=== PATIENT | female | born 1985 | race Caucasian/White ===

== ENCOUNTER 2023-07-24 06:22 | Emergency (ER) | payer BC, SELFPAY ==
[2023-07-24 06:30] VITALS: BP 115/68
[2023-07-24] MEDS: DECADRON 10 MG PO (08:15)
[2023-07-24] MEDS: TORADOL 30 MG IM (08:17)
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
[2023-07-24 09:10] VITALS: BP 117/56
== END 2023-07-24 09:15 | disposition home or self-care (01) ==
LOC: EMR 06:22
PROVIDERS: EMERGENCY PHYSICIAN Emergency Medicine; FAMILY PHYSICIAN Family Medicine
DX: M70.72 Other bursitis of hip, left hip (principal); M54.12 Radiculopathy, cervical region; G89.29 Other chronic pain
CPT/HCPCS: 99284; 96372

== ENCOUNTER → 2024-02-15 11:40 | Outpatient (REF) | payer BC, SELFPAY | LOC: RAD 11:40 | PROVIDERS: ATTENDING PHYSICIAN Emergency Medicine; FAMILY PHYSICIAN Family Medicine | DX: S99.921A Unspecified injury of right foot, initial encounter (principal) | CPT/HCPCS: 73630 ==

== ENCOUNTER → 2024-03-29 10:19 | Outpatient (REF) | payer BC, SELFPAY | LOC: EMG 10:19 | PROVIDERS: ATTENDING PHYSICIAN Student in an Organized Health Care Education/Training Program; FAMILY PHYSICIAN Family Medicine | DX: R20.0 Anesthesia of skin (principal) | CPT/HCPCS: 95886; 95910 ==

== ENCOUNTER → 2024-06-02 09:16 | Outpatient (REF) | payer BC, SELFPAY | LOC: RAD 09:16 | PROVIDERS: ATTENDING PHYSICIAN Family Medicine | DX: R06.09 Other forms of dyspnea (principal) | CPT/HCPCS: 71046 ==

== ENCOUNTER → 2024-12-27 11:41 | Outpatient (REF) | payer BC, SELFPAY | LOC: DHSLP 11:41 | PROVIDERS: ATTENDING PHYSICIAN Internal Medicine; FAMILY PHYSICIAN Family Medicine | DX: G47.30 Sleep apnea, unspecified (principal); R40.0 Somnolence | CPT/HCPCS: 95805 ==

== ENCOUNTER 2025-01-04 11:12 | Emergency (ER) | payer BC, SELFPAY ==
[2025-01-04 11:14] VITALS: BP 105/76
[2025-01-04 11:38] LABS: Hematocrit 43.9 % (37.0-47.0); Hemoglobin 15.3 g/dL (12.0-16.0); Mean Corp Hgb Conc. 34.9 g/dL (33.0-37.0); Mean Corpuscular Volume 91.5 fL (81.0-99.0); Nucleated Red Blood Cells % 0 %; Platelet Count 241 10^3/uL (130-400); Red Cell Dist. Width 12.1 % (11.5-14.5)
[2025-01-04 11:40] VITALS: BP 102/76
[2025-01-04 11:56] LABS: ALT (SGPT) 24 U/L (0-35); AST (SGOT) 27 U/L (14-36); Albumin 4.5 g/dl (3.5-5.0); Alkaline Phosphatase 72 U/L (38-126); Blood Urea Nitrogen 7 mg/dl (7-17); Calcium 9.8 mg/dl (8.4-10.2); Carbon Dioxide 27 mmol/L (22-30); Chloride 107 mmol/L (98-107); Glucose 103 mg/dl (70-99); HCG, Serum Qualitative Screen Negative; Potassium 4.3 mmol/L (3.5-5.1); Sodium 139 mmol/L (135-145); Total Protein 7.2 g/dl (6.3-8.2); eGFR > 60.00
[2025-01-04 12:00] VITALS: BP 110/71; BP 129/84
[2025-01-04 12:03] LABS: Troponin I < 0.012 ng/ml
--- NOTE | 2025-01-04 13:23 | ED.GENMED ---
History of Present Illness
<SUE Strickland - Last Filed: 01/04/25 14:17>
General
Chief Complaint: Musculo-Skeletal Complaint
Source: patient
Exam Limitations: none
Time Seen by Provider: 01/04/25 11:49
Nursing documentation reviewed up to this point in time: agreed with
History of Present Illness
History of Present Illness:
39-year-old female presents to the ER for evaluation. Patient has chronic fibromyalgia history of chronic fatigue syndrome,' floating rib surgery followed at [facility] by Dr. Mauricio presents to the ER for evaluation. She had surgery for
this. November 2023 and ever since that chronic pain in the sternum and rib area. She reports that over the past 1 week pain has been exacerbated not relieved with Tylenol. She also has some burning pain in the epigastric region. She does have
history of ulcer years ago after taking NSAIDs however has not taken NSAIDs since the ulcer was diagnosed. She has since healed from the ulcer. She just saw her surgeon in October and had a CAT scan there unsure what is causing her chronic pain. She
does report her surgeon discussed possible Xiphodynia as possible cause.
Past History
<SUE Strickland - Last Filed: 01/04/25 14:17>
Past History
ED Past Medical History: Hypothyroidism (She noticed's) and Other (Chronic low back pain with bilateral sciatica. Had an MRI in May 2023 which showed a small disc herniation but not much else.)
ED Past Surgical History: Orthopedic
Social History
Tobacco: Non-smoker
Alcohol: Occasional
Personal:
Living: with family
Employment: Employed
Phy Exam
<SUE Strickland - Last Filed: 01/04/25 14:17>
General Physical Exam
General Presentation: no apparent distress
General age: appears stated age
General Skin: warm and dry
General Habitus: normal
General Mental: alert
General Hydration: appears well hydrated
Cardiovascular Exam
Cardiovascular Exam: regular rate/rhythm, no murmur and normal peripheral pulses
Pulmonary Exam
Pulmonary Exam: lungs clear, no respiratory distress and other (Very tender to light touch over the sternal and left lateral rib area no acute respiratory distress lungs are clear)
Gastrointestinal Exam
Gastrointestinal Exam: normal bowel sounds, non tender and soft
Neurological Exam
Neurological Exam: alert and oriented x3
Musculoskeletal Exam
Musculoskeletal Exam: full ROM
Skin Exam
Skin Exam: normal color and warm/dry
Psychiatric Exam
Psychiatric Exam: normal mood/affect
Course
<SUE Strickland - Last Filed: 01/04/25 14:17>
Orders/Labs/Results
Orders:
Orders
01/04/25 11:19
ECG [Electrocardiogram (*1)] Urgent
Reason for Study: Chest Pain
EKG- Treatment ONCE
01/04/25 11:20
Test Result ONCE
01/04/25 11:28
Complete Blood Count/With Diff Urgent
Comprehensive Metabolic Panel Urgent
HCG, Serum Qualitative Screen Urgent
Troponin I Urgent
01/04/25 13:21
Chest [CR Chest - 2 Views ] Urgent
Comment:
Reason For Exam: pain
01/04/25 13:22
Famotidine [Pepcid] 40 mg PO NOW STA
Ketorolac [Toradol] 30 mg IM NOW STA
Abnormal Lab Results
01/04/25
11:28
WBC 12.4 H 10^3/uL
(4.8-10.8)
MCH 31.9 H pg
(27.0-31.0)
Absolute Neuts (auto) 9.5 H 10^3/uL
(1.4-6.5)
Neutrophils % 77.2 H %
(42.2-75.2)
Lymphocytes % 14.3 L %
(20.5-51.1)
Glucose 103 H mg/dl
(70-99)
01/04/25 11:28
01/04/25 11:51
Vital Signs
Initial and Last Documented VS:
Initial Vital Signs
Temp Pulse Resp BP Pulse Ox
98.5 F 82 16 105/76 97
01/04/25 11:14 01/04/25 11:14 01/04/25 11:14 01/04/25 11:14 01/04/25 11:14
Last Documented Vital Signs
Temp Pulse Resp BP Pulse Ox
98.5 F 74 17 129/84 98
01/04/25 11:14 01/04/25 12:00 01/04/25 12:00 01/04/25 12:00 01/04/25 13:29
<Basil Cruz, DO - Last Filed: 01/04/25 13:56>
Orders/Labs/Results
Orders:
Orders
01/04/25 11:19
ECG [Electrocardiogram (*1)] Urgent
Reason for Study: Chest Pain
EKG- Treatment ONCE
01/04/25 11:20
Test Result ONCE
01/04/25 11:28
Complete Blood Count/With Diff Urgent
Comprehensive Metabolic Panel Urgent
HCG, Serum Qualitative Screen Urgent
Troponin I Urgent
01/04/25 13:21
Chest [CR Chest - 2 Views ] Urgent
Comment:
Reason For Exam: pain
01/04/25 13:22
Famotidine [Pepcid] 40 mg PO NOW STA
Ketorolac [Toradol] 30 mg IM NOW STA
Abnormal Lab Results
01/04/25
11:28
WBC 12.4 H 10^3/uL
(4.8-10.8)
MCH 31.9 H pg
(27.0-31.0)
Absolute Neuts (auto) 9.5 H 10^3/uL
(1.4-6.5)
Neutrophils % 77.2 H %
(42.2-75.2)
Lymphocytes % 14.3 L %
(20.5-51.1)
Glucose 103 H mg/dl
(70-99)
01/04/25 11:28
01/04/25 11:51
Vital Signs
Initial and Last Documented VS:
Initial Vital Signs
Temp Pulse Resp BP Pulse Ox
98.5 F 82 16 105/76 97
01/04/25 11:14 01/04/25 11:14 01/04/25 11:14 01/04/25 11:14 01/04/25 11:14
Last Documented Vital Signs
Temp Pulse Resp BP Pulse Ox
98.5 F 74 17 129/84 98
01/04/25 11:14 01/04/25 12:00 01/04/25 12:00 01/04/25 12:00 01/04/25 13:29
<SUE Strickland - Last Filed: 01/04/25 14:17>
MDM/Problems Addressed
Differential Diagnosis Includes:
Not limited to chronic pain, reflux, musculoskeletal pain
MDM/Problems Addressed:
Patient has chronic pain in the sternal, rib area ever since her surgery in 2023 as documented she is followed by cardiothoracic surgery at [facility] for persistent pain. In addition she has a history of fibromyalgia chronic pain syndrome and is
prescribed low-dose naltrexone by rheumatology. She has chronic pain ever since 2023 however the past week this has exacerbated with no trauma. She is taken Tylenol without relief. Her lungs are clear she is not hypoxic she is not tachypneic.
She does feel her CT surgeon in October at [facility] and had a full CAT scan. Patient no acute distress here stable vital signs. She also complains of burning in the epigastric area will discharge Protonix for the next 2 weeks and Tylenol with close
instructions follow-up with her surgeon, she is already on low-dose naltrexone for pain. Lungs are clear patient is very tender on exam palpation of the chest area and rib area however no erythema will check chest x-ray and plan for discharge home
with Protonix for the next 2 weeks followed by outpatient follow-up with her GI specialist pain management /automotive service management teacher and surgeon
Chronic conditions affecting care:
Chronic pain fibromyalgia previous rib surgery
<SUE Strickland - Last Filed: 01/04/25 14:17>
*Radiology
Radiology exam reviewed: radiology read reviewed
*Pulse Oximetry
SaO2: 98
Oxygen Mode of Delivery: Room air
Patient hypoxic: no
*EKG
Heart Rate: 69
Rate: normal
Rhythm: sinus
Ischemia: non-specific ST changes
*Critical Care Note
Total Time (30-74mins, 75-104mins- exclusive of procedures): Not Applicable
ED Attending Note
<SUE Strickland - Last Filed: 01/04/25 14:17>
-
Portions of this chart may have been created with voice recognition software.� Occasional wrong word or��sound alike� substitutions may have occurred due to the inherent limitations of voice recognition software.
<Basil Cruz DO - Last Filed: 01/04/25 13:56>
ED Attending Note
Patient seen and examined by attending physician: Yes
I performed the substantive portion of visit, reviewed & personally made and approve the management plan that is documented in note by myself or KEVAN.: Yes
ED Attending Note:
Seen with KEVAN examined independently 39-year-old female acute on chronic pain did have rib surgery, saw her surgeon recently, has a chronic pain syndrome
Discharge Plan
Departure
Patient Disposition: Home (Routine Discharge)
Date of Disposition: 01/04/25
Time of Disposition: 14:15
Patient with high blood pressure during this ER visit?: No
Condition: Fair
Covid-19: Not Applicable
Discharge Problem:
Chronic pain, gerd
Instructions: Chronic pain, Acid reflux and GERD in adults
Prescriptions:
New
pantoprazole [Protonix] 40 mg tablet,delayed release (DR/EC)
40 mg PO DAILY Qty: 14 0RF
No Action
levothyroxine 50 MCG tablet
50 mcg PO DAILY
cetirizine 10 MG tablet
10 mg PO DAILYPRN PRN (Reason: ALLERGIES)
acetaminophen 325 MG tablet
650 mg PO Q6HPRN PRN (Reason: mild pain/ fever>100.5F) 0RF
polyethylene glycol 3350 17 GRAMS powder in packet
17 grams PO DAILY PRN (Reason: constipation) Qty: 30 0RF
hydrocodone-acetaminophen 5-325 mg tablet
1 tab PO Q6H PRN (Reason: Pain) Qty: 10 0RF
tramadol 50 mg tablet
50 mg PO BID PRN (Reason: Pain) Qty: 7 0RF
prednisone 20 mg tablet
40 mg PO DAILY Qty: 10 0RF
Referrals:
Lisa Hill DO [Family Provider]
Activity Restrictions/Additional Instructions:
Follow-up with your GI specialist as well as your surgeon and automotive service management teacher for continued follow-up for pain management and continued reevaluation. [place] diet. A prescription for Protonix was sent to pharmacy take as directed daily for the next 2
weeks.
Interventions
Interventions:
*Neglect/Abuse Screening Last Done: 01/04/25 12:53
ED-Musculoskeletal Assessment Last Done: 01/04/25 12:54
Discharge Date and Time
Print Language: TURKISH
[2025-01-04] MEDS: PEPCID 40 MG PO (13:36)
[2025-01-04] MEDS: TORADOL 30 MG IM (13:36)
== END 2025-01-04 14:25 | disposition home or self-care (01) ==
LOC: EMR 11:12
PROVIDERS: Student in an Organized Health Care Education/Training Program; EMERGENCY PHYSICIAN Emergency Medicine; FAMILY PHYSICIAN Family Medicine
DX: G89.4 Chronic pain syndrome (principal); K21.9 Gastro-esophageal reflux disease without esophagitis; E03.9 Hypothyroidism, unspecified; M79.7 Fibromyalgia
CPT/HCPCS: 99283; 96372; 71046; 80053; 84484; 84703; 85025; 93005